=== PATIENT | male | born 1990 | race Caucasian/White ===

== ENCOUNTER 2022-07-10 20:18 | Emergency (ER) | payer MEDICAID ==
[~2022-07-10] VITALS: Ht 177.8 cm; Wt 79.4 kg
[2022-07-10 20:31] VITALS: BP_SYST 113
--- NOTE | 2022-07-10 20:32 | NUR ---
Patient presents to ED from home with c/o flu like symptoms x4 days. Patient reports cough, fatigue, congestion, diarrhea, sore throat, and wheezing earlier today. No resp distress noted at this time. Patient reports feeling body aches x3 days, none today. Patient has hx of (+) HIV and left lung mass found x1 yr ago. Patient A/Ox4, VSS, ambulatory, resp even and unlabored. Nad noted at this time. ER MD Zuleta made aware.
--- NOTE | 2022-07-10 20:39 | NUR ---
Patient triaged and placed in tent. Patient A/Ox4, VSS, ambulatory, resp even and unlabored. Nad noted at this time. Accompanied by self, awaiting available bed, ER MD Zuleta notified.
--- NOTE | 2022-07-10 22:13 | NUR ---
Per ER MD Zuleta, no covid swab needed at this time due to recent negative swab x2day.
--- NOTE | 2022-07-10 22:19 | NUR ---
ROHITH GONZALEZ Kwaw at bedside.
[2022-07-10] MEDS ORDERED: MED4 PO (22:51)
[2022-07-10 22:53] VITALS: BP_SYST 113
--- NOTE | 2022-07-10 22:53 | NUR ---
Patient given written and verbal discharge instructions and verbalizes understanding. ER MD discussed with patient the results and treatment provided. Patient in stable condition. ID arm band removed. Patient educated on pain management and to follow up with PMD. Pain Scale 0/10. Opportunity for questions provided and answered. Medication side effect fact sheet provided. Patient A/Ox4, VSS, ambulatory, resp even and unlabored. Patient in stable condition upon discharge. Nad noted at this time.
== END 2022-07-10 22:53 | disposition home or self-care (01) ==
LOC: SED 20:18
DX: J06.9 Acute upper respiratory infection, unspecified (principal); R05.9 Cough, unspecified; R50.9 Fever, unspecified; J02.9 Acute pharyngitis, unspecified; Z79.899 Other long term (current) drug therapy
CPT/HCPCS: 99281